=== PATIENT | female | born 1960 | race Caucasian/White ===

== ENCOUNTER 2022-01-29 16:11 | Emergency (ER) | payer OTHER, SELFPAY ==
[2022-01-29 16:12] VITALS: BP 139/84; PULSE 101; RESP 18; TEMP 36.7; O2SAT 96; BMI 36.6
--- NOTE | 2022-01-29 16:38 | XR_ITS ---
PROCEDURE INFORMATION: Exam: XR Left Shoulder Exam date and time: 01/29/2022 4:42 PM Age: 61 years old Clinical indication: Injury or trauma; Fall; Dislocation; Shoulder; Left TECHNIQUE: Imaging protocol: Radiologic exam of the Left shoulder. Views: 2 or more views. COMPARISON: No relevant prior exams. FINDINGS: Bones/joints: Anterior shoulder dislocation. No fractures. Spurring of the glenoid rim. Subacromial spurring. Soft tissues: Normal. No swelling or abnormal density. IMPRESSION: Anterior shoulder dislocation.
[2022-01-29 16:40] VITALS: BP 139/84; PULSE 101; RESP 18; TEMP 36.7; O2SAT 96; BMI 36.6
--- NOTE | 2022-01-29 16:40 | HMH.EDUTC ---
[facility] Disposition Clinical Impression: Dislocation of left shoulder joint Qualifiers: Encounter type: initial encounter Qualified Code(s): S43.005A - Unspecified dislocation of left shoulder joint, initial encounter Disposition: Home, Self-Care Condition on Discharge: Good Instructions: DI for Shoulder Dislocation Referrals: Isaías Mirza [Primary Care Provider] - Russell Lambert MD [Staff Physician] - Medical Decision Making - Medical Records Medical records reviewed: No: I reviewed the patient's medical records. - Lukas Inquiry Pt receiving controlled substance: No Vital Signs: 01/29/22 16:12 01/29/22 16:40 01/29/22 17:07 Temperature 98.1 F 98.1 F 98.3 F Temperature Source Oral Oral Oral Pulse Rate Pulse Rate [Right Radial] 101 H 101 H 84 Respiratory Rate 18 18 16 Blood Pressure Blood Pressure [Right Arm] 139/84 139/84 167/104 H Blood Pressure Mean [Right Arm] 102 102 125 Blood Pressure Source [Right Arm] Automatic Cuff Automatic Cuff Blood Pressure Position [Right Arm] Sitting Sitting 02 Sat by Pulse Oximetry 96 96 98 Oxygen Delivery Method Room Air Room Air 01/29/22 18:21 01/29/22 19:07 Temperature 98.3 F Temperature Source Pulse Rate 83 82 Pulse Rate [Right Radial] Respiratory Rate 19 19 Blood Pressure 144/98 H 138/90 Blood Pressure [Right Arm] Blood Pressure Mean [Right Arm] Blood Pressure Source [Right Arm] Blood Pressure Position [Right Arm] 02 Sat by Pulse Oximetry 99 Oxygen Delivery Method Room Air Room Air Orders (Tests/Meds): ED MEDICATIONS Discontinued Medications Generic Name Dose Route Start Last Admin Trade Name Dheeraj PRN Reason Stop Dose Admin Fentanyl Citrate 125 mcg 01/29/22 17:35 01/29/22 17:40 Fentanyl 250mcg/5ml Vial IV 01/29/22 17:36 125 mcg ONCE ONE Administration Ondansetron HCl 4 mg 01/29/22 17:35 01/29/22 17:35 Ondansetron 4mg/2ml Vial IV 01/29/22 17:36 4 mg ONCE ONE Administration Sodium Chloride 10 ml 01/29/22 17:15 Sodium Chloride 0.9% 10ml Flush Syringe IV 02/28/22 17:14 NEEDED PRN Maintain IV Site Medical Decision Narrative: she was transferred to the er due to her left shoulder being out of place [facility] HPI - General Stated complaint: AO 01/29@1530@home injuredL shoulder Time Seen by Provider: 01/29/22 16:40 Mode of Arrival: Ambulatory Source of Information: Patient Limitations: No Limitations Description of Symptoms (Recalled from Triage Doc. by RN): Pt states that she fell at approx 1500. C/O left shoulder pain - History of Present Illness Provider Complaint: She fell at home about 30 mintues [address] [place]. She is c/o left shoulder pain and swelling. - Related Data Allergies Allergy/AdvReac Type Severity Reaction Status Date / Time No Known Allergies Allergy Verified 01/29/22 16:45 [facility] History - Hepatitis A Screen Attestation statement:: This patient has been screened for Hepatitis A risk factors. I have reviewed the patient's past medical history: Yes ROS Obtained: Yes All systems reviewed & no additional complaints - Constitutional Constitutional: Denies chills, Denies fever(s) - Musculoskeletal Musculoskeletal: Reports as per HPI - Integumentary/Breasts Skin/Breast: Denies redness, Denies rash, Denies wounds - Neurologic Neurologic: Denies tingling/numbness/burning sensations Physical Exam - General General appearance: alert, in no apparent distress - Head Head exam: atraumatic, normocephalic, normal inspection - Eye Eye exam: Present: normal appearance, PERRL, EOMI - ENT ENT exam: Present: normal exam, normal oropharynx, mucous membranes moist, TM's normal bilaterally, normal external ear exam - Neck Neck exam: Present: normal inspection, full ROM, trachea midline. Absent: meningismus, lymphadenopathy - Chest Chest inspection: Present: normal inspection, symmetric chest wall rise. Absent: tenderness - Respiratory Respiratory
[2022-01-29 17:07] VITALS: BP 167/104; PULSE 84; RESP 16; TEMP 36.8; O2SAT 98; BMI 36.6
--- NOTE | 2022-01-29 17:57 | XR_ITS ---
PROCEDURE INFORMATION: Exam: XR Left Shoulder Exam date and time: 01/29/2022 6:10 PM Age: 61 years old Clinical indication: Screening exam; Post reduction of left shoulder in er. Exam done portable. TECHNIQUE: Imaging protocol: Radiologic exam of the Left shoulder. Views: 2 or more views. COMPARISON: CR XR SHOULDER LT MIN 2V 01/29/2022 4:42 PM FINDINGS: Bones/joints: Since the prior study, the dislocation has been reduced. Osseous structures are in anatomic alignment. No fractures. Soft tissues: Normal. No swelling or abnormal density. IMPRESSION: Reduction of dislocation.
--- NOTE | 2022-01-29 18:17 | HMH.EDUPEXT ---
ED Disposition Clinical Impression: Dislocation of left shoulder joint Qualifiers: Encounter type: initial encounter Qualified Code(s): S43.005A - Unspecified dislocation of left shoulder joint, initial encounter Disposition: Home, Self-Care Condition on Discharge: Good Instructions: DI for Shoulder Dislocation Referrals: Isaías Mirza [Primary Care Provider] - Russell Lambert MD [Staff Physician] - - Critical Care Critical Care Time: No Attestation: On 01/29/22, the high probability of a clinically significant, sudden or life threatening deterioration of the following system(s) required my full and direct attention, intervention and personal management. The time I documented below is in addition to time spent performing reported procedures but includes the following listed in this critical care notation. Medical Decision Making - Lukas Inquiry Pt receiving controlled substance: Yes Lukas was queried for this patient: No Risks and benefits of using a controlled substance: were discussed with pt by me Vital Signs: 01/29/22 16:12 01/29/22 16:40 01/29/22 17:07 Temperature 98.1 F 98.1 F 98.3 F Temperature Source Oral Oral Oral Pulse Rate [Right Radial] 101 H 101 H 84 Respiratory Rate 18 18 16 Blood Pressure [Right Arm] 139/84 139/84 167/104 H Blood Pressure Mean [Right Arm] 102 102 125 Blood Pressure Source [Right Arm] Automatic Cuff Automatic Cuff Blood Pressure Position [Right Arm] Sitting Sitting 02 Sat by Pulse Oximetry 96 96 98 Oxygen Delivery Method Room Air Room Air Orders (Tests/Meds): ED MEDICATIONS Generic Name Dose Route Start Last Admin Trade Name Freq PRN Reason Stop Dose Admin Sodium Chloride 10 ml 01/29/22 17:15 Sodium Chloride 0.9% 10ml Flush Syringe IV 02/28/22 17:14 NEEDED PRN Maintain IV Site Discontinued Medications Generic Name Dose Route Start Last Admin Trade Name Freq PRN Reason Stop Dose Admin Fentanyl Citrate 125 mcg 01/29/22 17:35 01/29/22 17:40 Fentanyl 250mcg/5ml Vial IV 01/29/22 17:36 125 mcg ONCE ONE Administration Ondansetron HCl 4 mg 01/29/22 17:35 01/29/22 17:35 Ondansetron 4mg/2ml Vial IV 01/29/22 17:36 4 mg ONCE ONE Administration ORDERS Category Date Time Status XR shoulder LT min 2V Stat Exams 08/17/22 17:57 Taken Medical Decision Narrative: In review this is a 61-year-old female who presents with a left shoulder injury. Initial x-rays from the urgent care show a left anterior glenohumeral dislocation. I discussed the options to reduce this with the patient we elected to do 100 mcg of fentanyl and do traction countertraction. We were successful at reducing this. She was given a sling for comfort. She will follow-up with orthopedics. At this point stable for discharge. Return precautions given. Upper Extremity HPI - General Chief Complaint: Extremity Injury, Upper Stated Complaint: AO 01/29@1530@home injuredL shoulder Time Seen by Provider: 01/29/22 16:40 Mode of Arrival: Wheelchair Source of Information: Patient Limitations: No Limitations Description of Symptoms (Recalled from ER Triage Doc. by RN): Pt to ED from [facility] for further eval r/t left shoulder injury following a fall - History of Present Illness HPI narrative: Patient is a 61-year-old female who presents after a left upper extremity injury. She says that she had a fall earlier today and landed on her left arm. She says she was outstretched and she has not been able to move it well since then. She did not hit her head no loss consciousness. She denies any numbness into the extremity. She says her arm is painful with movement and relieved with rest. - Related Data Allergies Allergy/AdvReac Type Severity Reaction Status Date / Time No Known Allergies Allergy Verified 01/29/22 16:45 [facility] History - Hepatitis A Screen Attestation statement:: This patient has been screened for Hepatitis A risk factors. ROS
[2022-01-29 18:21] VITALS: BP 144/98; PULSE 83; RESP 19; O2SAT 99
[2022-01-29 19:07] VITALS: BP 138/90; PULSE 82; RESP 19; TEMP 36.8; O2SAT 99
== END 2022-01-29 19:09 | disposition home or self-care (01) ==
LOC: ER 16:32 → UTC 16:33 → ER 17:05
PROVIDERS: Emergency Provider Student in an Organized Health Care Education/Training Program; PCP Pediatrics
DX: S43.005A Unspecified dislocation of left shoulder joint, initial encounter (principal); W19.XXXA Unspecified fall, initial encounter
CPT/HCPCS: 23655; 73030; 96374; 96375; 96376; 99284; J2405

== ENCOUNTER 2022-07-20 11:13 | Emergency (ER) | payer OTHER, SELFPAY ==
[2022-07-20 11:14] VITALS: BP 144/96; PULSE 91; RESP 16; TEMP 36.4; O2SAT 96; BMI 33.8
--- NOTE | 2022-07-20 11:29 | HMH.EDANX ---
Discharge Plan Disposition Patient Disposition: Home, Self-Care Condition: Good Prescriptions Prescriptions: New venlafaxine [Effexor XR] 150 mg capsule,extended release 24hr 150 mg PO DAILY Qty: 7 0RF Referrals Follow up/Referrals: Isaías Mirza [Primary Care Provider] - See instructions Activity Restrictions/Add. Instructions Additional Instructions/Restrictions: Take all medications as prescribed. Follow-up with your primary care doctor in about 3 to 4 days even if you feel better. Return to the emergency department immediately if you feel worse in any way. Clinical Impressions Clinical Impression: Anxiety Instructions Patient Instructions: DI for Anxiety -- Adult Discharge ED Provider: Sondra Pemberton Anxiety HPI General Stated Complaint: anxiety Time Seen by Provider: 07/20/22 11:21 History of Present Illness HPI narrative: The patient presents to the emergency department complaining of anxious feelings. She used to be on Effexor 250 mg in the morning but for some reason her refills did not go through. Her last dose was approximately 8 days ago. The patient denies any other symptoms. She denies chest pain. She denies abdominal pain. She denies vomiting, diarrhea or fevers. Related Data Previous Rx's Medication Instructions Recorded venlafaxine 150 mg 150 mg PO DAILY #7 caps 07/20/22 capsule,extended release 24 hr (Effexor XR) Allergies Allergy/AdvReac Type Severity Reaction Status Date / Time No Known Allergies Allergy Verified 01/29/22 16:45 [facility] Disclaimer: The information contained in this section may have been updated after the patient was seen, as this information can be updated by other users. Social History Smoking Status: Never smoker alcohol intake: never current occupational status: other details: unknown Travel in the last 8 weeks: None ROS Obtained: Yes All systems reviewed & no additional complaints except as documented Physical Exam General General appearance: alert, in no apparent distress and anxious (mild) Head Head exam: atraumatic Eye Eye exam: Present normal appearance ENT ENT exam: Present normal exam Neck Neck exam: Present normal inspection and full ROM; Absent tenderness or meningismus Chest Chest inspection: Present normal inspection and symmetric chest wall rise; Absent tenderness Respiratory Respiratory exam: Present normal lung sounds bilaterally; Absent respiratory distress or accessory muscle use Cardiovascular Cardiovascular exam: Present regular rate, normal rhythm and normal heart sounds Abdominal Exam Abdominal exam: Present soft and normal bowel sounds; Absent distention, tenderness, heel tap sign, Horowitz's sign, Rovsing's sign, tenderness at McBurney's Point or mass Extremities Exam Extremities exam: Present normal inspection and full ROM; Absent calf tenderness Back Exam Back exam: Present normal inspection; Absent CVA tenderness (R) or CVA tenderness (L) Neurological Exam Neurological exam: Present alert and oriented X3 Psychiatric Psychiatric exam: Present normal affect and normal mood Skin Skin exam: Present warm, dry, intact and normal color Medical Decision Making Lukas Inquiry Pt receiving controlled substance: No Medical Decision Narrative: The patient's history and physical is consistent with Effexor withdrawal. I do not believe that the patient requires any further work-up. She will be discharged with a prescription for Effexor. Critical Care Time Critical Care Time Critical Care Time: No Attestation: On , the high probability of a clinically significant, sudden or life threatening deterioration of the following system(s) required my full and direct attention, intervention and personal management. The time I documented below is in addition to time spent performing reported procedures but includes the following listed in this critical care notation.
[2022-07-20 11:36] VITALS: BP 136/90; PULSE 104; RESP 20; O2SAT 96
[2022-07-20 11:54] VITALS: BP 135/74; PULSE 108; RESP 16; TEMP 36.8; O2SAT 96
== END 2022-07-20 11:56 | disposition home or self-care (01) ==
LOC: ER 11:38
PROVIDERS: Emergency Provider Emergency Medicine; PCP Pediatrics
DX: F41.9 Anxiety disorder, unspecified (principal)
CPT/HCPCS: 99283; 99284